=== PATIENT | female | born 1985 | race Caucasian/White ===

== ENCOUNTER 2019-05-05 19:33 | Emergency (ER) | payer OTHER ==
[~2019-05-05] VITALS: Ht 167.6 cm; Wt 113.4 kg
[2019-05-05 19:39] VITALS: BP 153/96
[2019-05-05] MEDS ORDERED: HYDROCODON-ACE1 EAC8 PO (20:03)
[2019-05-05] MEDS ORDERED: CLINDAMYCIN HC150 MG PO (20:03)
== END 2019-05-05 20:18 | disposition home or self-care (01) ==
LOC: M.ERS 19:33
DX: K02.9 Dental caries, unspecified (principal); Z90.49 Acquired absence of other specified parts of digestive tract; Z98.890 Other specified postprocedural states